=== PATIENT | male | born 1985 | race Caucasian/White ===

== ENCOUNTER 2017-11-17 12:52 | Emergency (ER) | payer MEDICAID ==
[~2017-11-17] VITALS: Ht 170.2 cm; Wt 52.3 kg
[2017-11-17 13:48] VITALS: BP 133/84
[2017-11-17] MEDS ORDERED: LIDOcaine 1% 30ml preserv. free vial IJ ONE (13:55)
[2017-11-17] MEDS ORDERED: HYDR-3965 PO ×2 (15:52→15:53)
[2017-11-17] MEDS ORDERED: SULF1TAB49 PO (15:52)
[2017-11-17] MEDS ORDERED: HYDR-569 PO (15:58)
== END 2017-11-17 17:31 | disposition home or self-care (01) ==
LOC: ER 12:53
DX: L02.512 Cutaneous abscess of left hand (principal); F15.10 Other stimulant abuse, uncomplicated; F17.200 Nicotine dependence, unspecified, uncomplicated; Z98.890 Other specified postprocedural states; Z79.899 Other long term (current) drug therapy; Z56.0 Unemployment, unspecified; Z60.2 Problems related to living alone; Z59.0 Homelessness
CPT/HCPCS: 26010; 99283; A6449; J3490